=== PATIENT | female | born 1985 ===

== ENCOUNTER 2018-12-27 11:14 | Inpatient (IN) | payer BC, MEDICAID ==
[2018-12-27] MEDS ORDERED: Lactated Ringers 1000 ML Bag* 1,000 ML IV ONE ×2 (11:41→18:52)
[2018-12-27] MEDS ORDERED: Buffered Lidocaine 1% SYRIN* 1 ML/SYRINGE INTRADERM ONE (11:41)
[2018-12-27] MEDS ORDERED: Lactated Ringers 1000 ML Bag* 1,000 ML IV SCH ×3 (12:00→22:00)
--- NOTE | 2018-12-27 12:06 | HP ---
General Information - Reason for Visit SROM @0700, contractions increasing in strength and frequency. - General Information Maternal Age: 33 Grav: 3 Para: 2 SAB: 0 IEA: 0 Estimated Due Date: 12/18/18 Determined By: Early Ultrasound Gestational Age in Weeks/Days: 41 02/21 Maternal Blood Type and Rh: A Positive - Results this Serology/RPR Result: Non-Reactive Rubella Result: Immune HBsAg Result: Negative HIV Result: Negative GBS Culture Result: Negative Past Medical History Delivery History: Hx Uncomplicated Vaginal Delivery Pertinent Past Medical History: Non-Contributory Pertinent Past Surgical History: See Records - Cholecystectomy; Ear Surgery Pertinent Family History: Non-Contributory - Antepartal Records Antepartal Records: Reviewed, Uncomplicated Review of Systems Constitutional: Comfortable CV Complaint: No Respiratory: Shortness of Breath: No Gastrointestinal: No Nausea/Vomiting, Normal Bowel Movement Genitourinary: Leaking Fluid, No Dysuria, No Bleeding Musculoskeletal: No Epigastric Pain, Contractions Neurological: No Headache, No Visual Changes Movement: Normal - K - Comments R knee pain/contusion from fall 2 days ago Exam T 97.7 HR 81 RR 20 BP 107/57 O2 sat 100% - Measurements Height: 1.73 m Weight: 107.048 kg Weight in lbs: 236.001530 Body Mass Index (BMI): 35.9 Pre- Weight: 88.451 kg - Exam Breast: Breast Exam Deferred CVA: No CVA Tenderness Extremities: No Edema Heart: Normal Rhythm/Heart Sounds HEENT: No Significant Findings Lungs: Clear Bilaterally Rectal: Rectal Exam Deferred Thyroid: No Thyromegaly - Abdominal Exam Abdomen Exam: Non-Tender, Fundal Height Consistent with Dates Targeted Exam Findings Estimated Weight: 8.0 Cervical Exam: 2cm, 3cm Effacement: 50% Station: -2 Presenting Part: Vertex Membrane Status: SROM Amniotic Fluid Evaluation: Gross Rupture Bleeding/Discharge: Bloody Show EFM Findings - External Monitor Findings Baseline Heart Rate: 130 External Monitor Findings: Accelerations Present, No Pattern of Variable or Late Decelerations, Variability Moderate, Baseline Stable Contractions: Irregular, Mild, Moderate, < 45 Seconds, 45-90 Seconds Contraction Frequency: q 3-5 min Assessment/Plan - Obstetrical Risk Factors Obstetrical Risk Factors: Post-Dates - Plan Plan: Admit - Anticipate Vaginal Delivery Plan Comment: Intermittent monitoring Activity as tolerated Labor support and comfort measures as needed Continue to evaluate labor status, if no progression consider augmentation - Date/Time of Admission Date of Admission: 12/27/18 Time of Admission: 11:45
[2018-12-27 12:31] LABS: Urine Benzodiazepine Screen None Detected (None Detect); Urine Opiates Screen None Detected (None Detect)
--- NOTE | 2018-12-27 14:41 | PN ---
Progress Note - Progress Note Date of Service: 12/27/18 SOAP: Subjective: Pt still fairly comfortable, does feel that ctx are getting stronger and more regular. at bedside. Objective: FHR: 120 per doppler UCs: Q 3-4 minutes, mild to moderate Cervical exam deferred Leaking clear fluid Assessment: 33 year old at 41 1/7 weeks gestation with membranes ruptured about 7 hours, no evidence of acidemia or chorioamnionitis, does not yet appear to be in active labor. Plan: Discussed options with pt including augmentation with Pitocin, expectant management. Pt with preference for expectant management at this time. Will repeat NST, continue expectant management at this time. Will recheck cervix at 1900 or as needed. If minimal change at that time will recommend augmentation.
--- NOTE | 2018-12-27 16:53 | PN ---
Progress Note - Progress Note Date of Service: 12/27/18 Note: S: Pt reports contractions are stronger, coping well, but considering epidural, not ready yet. Mild nausea with contractions. Short time in the tub. at bedside. O: VS: T97.9 BP 98/49 HR 80 VE:4cm/80%/-1/vtx Cx: q 3-4 moderate FHTs: 135, moderate variability, + accels, -decels A: IUP @ 41 1/7 in active labor SROM for ~9hrs, GBS negative No signs of acidemia or chorioamnionitis P: Continue monitoring /maternal status Encouraged PO fluid intake Anticipate spontaneous vaginal Pt declines PIV at this time
[2018-12-27] MEDS ORDERED: OBEPIDURAL* 250 ML EPIDURAL ONE (17:11)
--- NOTE | 2018-12-27 17:25 | PN ---
Progress Note - Progress Note Date of Service: 12/27/18 Note: Pt requesting an epidural. Anesthesia aware. Cervical exam deferred.
[2018-12-27 17:42] LABS: ABS Eosinophils 0.1 10^3/ul (0-0.6); ABS Lymphocytes 2.7 10^3/ul (1.0-4.8); ABS Monocytes 0.9 10^3/ul (0-0.8); ABS Neutrophils 11.1 10^3/ul (1.5-7.7); Eosinophil % 0.5 %; Hematocrit 35 % (35-47); Hemoglobin 11.8 g/dL (12.0-16.0); Lymphocyte % 18.1 %; Mean Corpuscular HGB Conc 34 g/dL (31-36); Mean Corpuscular Hemoglobin 29 pg (27-31); Mean Corpuscular Volume 88 fL (80-97); Mean Platelet Volume 8.9 fL (7.4-10.4); Platelet Count 205 10^3/uL (150-450); Red Blood Count 4.03 10^6 /uL (3.70-4.87); Red Cell Distribution Width 14 % (10-15); White Blood Count 14.8 10^3/uL (3.5-10.8)
[2018-12-27] MEDS ORDERED: Sodium Citrate/Citric Acid* 15 ML UDC PO PRN (18:52)
[2018-12-27] MEDS ORDERED: Famotidine TAB* 20 MG PO PRN (18:52)
[2018-12-27] MEDS ORDERED: Phenylephrine 40 MCG/ML SYRINGE IV PUSH PRN (18:52)
[2018-12-27] MEDS ORDERED: OBEPIDURAL* 250 ML EPIDURAL SCH (19:00)
--- NOTE | 2018-12-27 19:23 | PN ---
Progress Note - Progress Note Date of Service: 12/27/18 Note: S: Pt comfortable with epidural, open to starting pitocin. Hoping to get a nap, at bedside. O: VS: T 99.1 BP 105/60 HR 80s VE: 5cm/80%/0/vtx UCs q3-4 mins FHT: 130, + accels,-decels No signs of acidemia A: IUP @ 41 1/7 in active labor SROM ~12 hrs Slow, but steady progress P: Continue monitoring /maternal status Initiate Pitocin augmentation Anticipate SVB
[2018-12-27] MEDS ORDERED: Oxytocin in LR* 20 UNITS/1,000 ML BAG IVPB SCH ×2 (20:00→22:00)
[2018-12-27] MEDS ORDERED: Dibucaine 1% 28.35 GM TUBE PR PRN (21:38)
[2018-12-27] MEDS ORDERED: Acetaminophen TAB* 325 MG PO PRN (21:38)
[2018-12-27] MEDS ORDERED: Witch Hazel PAD* JAR TOPICAL PRN (21:38)
[2018-12-27] MEDS ORDERED: Glycerin ADULT SUPP PR PRN (21:38)
--- NOTE | 2018-12-27 21:56 | PROCNOTE ---
[facility] OB: Delivery Note - Delivery A Date of : 12/27/18 Time of : 20:42 [place] Sex: Female Score 1 Minute: 9 Score 5 Minutes: 9 Gestational Age in Weeks and Days at Delivery: 41 Weeks and 2 Days Delivery Method: Spontaneous Vaginal Labor: Spontaneous Did Patient attempt ?: N/A, No Previous Amniotic Fluid: Clear Estimated Blood Loss: 400 Anesthesia/Analgesia: CEI for Labor Delivered By: Carmela Key SN[facility] - Nursery Level of Nursery: Regular/Bedside - Perineum Perineal Injury: 1st Degree Perineal Injury Comment: bouchra-urethral abrasion- not repaired Perineal Repair: By Delivering Practioner - Events Delivery Events of Note: Pitocin During Labor - Additional Delivery Notes Additional Delivery Notes: IUP @41 03/24 arrived in early active labor with SROM. Pt initially managed expectantly. Made steady progress, eventually decided on an epidural. Epidural placed, provided effective pain relief. Pt progressed to full dilation and urge to push. Pt pushed with good effort and rapid descent. Pt coached through slow controlled delivery of the head. Shoulders followed with gentle traction. to maternal abdomen, vigorous cry, good tone. FHR >100. At sign of placental separation, cord cut and clamped by FOB. Placenta soon followed with gentle cord traction. Blood side. Pitocin started at 250mL/hr. Fundus firm, some clots expressed. Bleeding stable. Examination of the perineum revealed 1st degree perineal lac and bouchra-urethral abrasion. Perineal lac repaired using absorbable suture resulting in good hemostasis and tissue approximation. Mother and stable, anticipate normal course.
[2018-12-27] MEDS: Ibuprofen TAB* 600 MG PO PRN (22:16)
[2018-12-28] MEDS: Ibuprofen TAB* 600 MG PO PRN (04:22)
[2018-12-28 08:06] LABS: ABS Eosinophils 0.1 10^3/ul (0-0.6); ABS Lymphocytes 2.8 10^3/ul (1.0-4.8); ABS Monocytes 0.9 10^3/ul (0-0.8); ABS Neutrophils 8.8 10^3/ul (1.5-7.7); Eosinophil % 0.7 %; Hematocrit 30 % (35-47); Hemoglobin 10.5 g/dL (12.0-16.0); Lymphocyte % 22.3 %; Mean Corpuscular HGB Conc 34 g/dL (31-36); Mean Corpuscular Hemoglobin 30 pg (27-31); Mean Corpuscular Volume 87 fL (80-97); Mean Platelet Volume 8.8 fL (7.4-10.4); Platelet Count 187 10^3/uL (150-450); Red Cell Distribution Width 13 % (10-15); White Blood Count 12.6 10^3/uL (3.5-10.8)
[2018-12-28] MEDS ORDERED: Ferrous Gluconate TAB* 324 MG TAB PO SCH (09:00)
[2018-12-28] MEDS: Docusate CAP* 100 MG PO SCH ×2 (09:14→13:43)
[2018-12-29] MEDS: Docusate CAP* 100 MG PO SCH (09:52)
[2018-12-29 10:20] VITALS: BP 126/84
== END 2018-12-29 12:45 | disposition home or self-care (01) | DRG 807 ==
LOC: MCHOBOUT 11:14 → MCHOB 11:42
PROVIDERS: ADMIT Midwife; ATTEND Midwife
PROC: 10E0XZZ Delivery of Products of Conception, External Approach (ICD-10-PCS; principal; 2018-12-27)
PROC: 0HQ9XZZ Repair Perineum Skin, External Approach (ICD-10-PCS; 2018-12-27)
PROC: 4A1HXCZ Monitoring of Products of Conception, Cardiac Rate, External Approach (ICD-10-PCS; 2018-12-27)
DX: O48.0 Post-term pregnancy (principal); Z37.0 Single live birth; O69.3XX0 Labor and delivery complicated by short cord, not applicable or unspecified; Z3A.41 41 weeks gestation of pregnancy; O70.0 First degree perineal laceration during delivery; O71.82 Other specified trauma to perineum and vulva
CPT/HCPCS: 36415; 80307; 85025; 86850; 86900; 86901; A9270-GY